=== PATIENT | female | born 2000 | race Caucasian/White ===

== ENCOUNTER 2022-09-21 18:22 | Emergency (ER) | payer OTHER, SELFPAY ==
[2022-09-21 18:30] VITALS: BP 121/67; PULSE 100; RESP 16; TEMP 36.2; O2SAT 99
[2022-09-21 18:41] VITALS: BP 121/67; PULSE 100; RESP 16; TEMP 36.2; O2SAT 99
--- NOTE | 2022-09-21 19:12 | ED.FEMALEGU ---
HPI - Female Genitourinary General Chief complaint: Urogenital-Female Stated complaint: Blood in Urine Source: patient and RN notes reviewed History of Present Illness HPI Narrative: 22-year-old female presents to urgent care with complaints left flank pain and blood in her urine for proximally 3 days. Patient reports slight nausea. Patient reports left lower back pain. Patient reports a history of kidney stones and believes this is whats going on. Denies any fevers, chills, vomiting, diarrhea, constipation, chest pain, or shortness of breath. Denies any dysuria. Related Data Home Medications Medication Instructions Recorded Confirmed albuterol 90 mcg/actuation aerosol 90 mcg inhalation Q4H PRN Dyspnea 09/21/22 09/21/22 inhaler budesonide-formoterol HFA 160 1 puff inhalation ONCE 09/21/22 09/21/22 mcg-4.5 mcg/actuation aerosol inhaler (Symbicort) dextroamphetamine-amphetamine 20 20 mg PO DAILY 09/21/22 09/21/22 mg tablet (Adderall) metformin 500 mg tablet 500 mg PO DAILY 09/21/22 09/21/22 Allergies Allergy/AdvReac Type Severity Reaction Status Date / Time No Known Allergies Allergy Verified 09/21/22 18:39 Review of Systems Review of Systems: Pertinent positives and pertinent negatives per HPI. PMFSH Comments At the time of my signature, I reviewed and agree with the nursing past medical, surgical, social, and family history. There is no relevant family history pertinent to the patient complaint. Exam Narrative: GENERAL: This is a well-nourished, well-developed patient, in no apparent distress. HEAD: normocephalic, atraumatic. EYES: Sclera clear/white. Vision is grossly intact. EARS: External ears normal, auditory canals clear and without drainage. Hearing grossly intact. NOSE: External nose normal with no obvious nasal discharge, nares without redness, no rhinorrhea. THROAT: Mucous membranes moist, posterior pharynx clear. NECK: Neck supple, non-tender without lymphadenopathy, masses or thyromegaly. CARDIOVASCULAR: Regular rate RESPIRATORY: No respiratory stress GASTROINTESTINAL: Abdomen soft, non-tender, nondistended. Bowel sounds are active. No hepato-splenomegaly, or palpable masses. No guarding. SKIN: warm, intact with no suspicious lesions or rash, good texture and turgor. NEURO: awake, alert, and oriented to person, place and time. There were no obvious focal neurologic abnormalities. BACK: Nontender without deformity or crepitus. No flank tenderness. Course Course Level of Care: Express Care Visit Vital Signs Vital signs: Vital Signs Temperature 97.2 F L 09/21/22 18:30 Pulse Rate 100 09/21/22 18:30 Respiratory Rate 16 09/21/22 18:30 Blood Pressure 121/67 09/21/22 18:30 Pulse Oximetry 99 09/21/22 18:30 Oxygen Delivery Room Air 09/21/22 18:30 Temperature 97.2 F L 09/21/22 18:41 Pulse Rate 100 09/21/22 18:41 Respiratory Rate 16 09/21/22 18:41 Blood Pressure 121/67 09/21/22 18:41 Pulse Oximetry 99 09/21/22 18:41 Oxygen Delivery Room Air 09/21/22 18:41 Reviewed MDM - Female Genitourinary MDM Narrative Medical decision making narrative: Take the Toradol as prescribed for pain. Do not take any other ibuprofen, Motrin, Advil, or Aleve with it. May take Tylenol 650 mg every 6 hours with the Toradol if needed. May take the Zofran as needed for nausea. Go to the ER with any new or worsening symptoms. Differential Diagnosis Differential diagnosis: Likely urinary tract infection and other (Hematuria, nephrolithiasis) Lab Data Attestation: I reviewed the patient's lab results. Labs: Urine Glucose Negative Reference Range: Negative Urine Bilirubin Negative Reference Range: Negative Urine Ketone Negative Reference Range: Negative Urine Specif
--- NOTE | 2022-09-21 20:03 | PC.NURSE ---
NO UC ORDERED PER PROVIDER
== END 2022-09-21 19:17 | disposition home or self-care (01) ==
PROVIDERS: Emergency Provider Nurse Practitioner Family
DX: R31.9 Hematuria, unspecified (principal); J45.909 Unspecified asthma, uncomplicated; R73.03 Prediabetes; E28.2 Polycystic ovarian syndrome; F90.9 Attention-deficit hyperactivity disorder, unspecified type
CPT/HCPCS: 81003; 99213; G0463

== ENCOUNTER 2023-02-23 17:00 | Emergency (ER) | payer OTHER, SELFPAY ==
[2023-02-23 17:06] VITALS: BP 120/69; PULSE 100; RESP 20; TEMP 37; O2SAT 100
--- NOTE | 2023-02-23 17:43 | ED.URI ---
HPI - URI/Sore Throat General Chief Complaint: Upper Respiratory Infection Stated Complaint: cough,shortness of breath Time Seen by Provider: 02/23/23 17:32 Source: patient, RN notes reviewed and old records reviewed Mode of arrival: ambulatory Limitations: no limitations History of Present Illness HPI Narrative: 23 year old presents to express care with complaints of cough and some shortness of breath, patient reports that her and her mother seem to be passing the bronchitis back and forth to each other. Patient has been on 2 rounds of antibiotics since the last part of December with last Rx received on 02/12/2023 of Amoxicillin which patient reports that she has taken. Patient reports that she had Rx of steroids also that she didn't pick up attendant because her insurance wouldn't cover them. Patient reports that she has history of asthma and has been using her Albuterol and also her Symbicort inhaler. Patient is afebrile and patient has nonlabored respirations with no tachypnea noted, SAO2 100% on room air.Patient is 10 weeks and has appointment with Dr Davenport on Saturday. Patient has history of asthma, SAO2 100% on room air, no tachypnea noted, occasional cough noted states needs refill of albuterol inhaler, elicited complaint: cough and other (reports some shortness of breath) Pertinent past history: asthma Onset (ago): day(s) (increased symptoms for 2 days) Pain scale (0-10): 0 Able to tolerate fluids by mouth: Yes Treatments prior to arrival: other (using prescribed inhalers) Related Data Home Medications Medication Instructions Recorded Confirmed albuterol 90 mcg/actuation aerosol 90 mcg inhalation Q4H PRN Dyspnea 09/21/22 09/21/22 inhaler budesonide-formoterol HFA 160 1 puff inhalation ONCE 09/21/22 09/21/22 mcg-4.5 mcg/actuation aerosol inhaler (Symbicort) fremanezumab-vfrm 225 mg/1.5 mL mg subcut 02/23/23 subcutaneous syringe (Ajovy Syringe) Allergies Allergy/AdvReac Type Severity Reaction Status Date / Time No Known Allergies Allergy Verified 09/21/22 18:39 Review of Systems Review of Systems: CONSTITUTIONAL: Denies malaise, chills, sweats, or fever. EYES: Denies visual changes, redness, or discharge. ENT: Reports rhinorrhea, congestion, sinus pain, otalgia and sore throat. CARDIOVASCULAR: Denies chest pain, palpitations, or edema. RESPIRATORY: Reports cough.? reports some dyspnea at times. GASTROINTESTINAL: Denies abdominal pain, nausea, vomiting, diarrhea SKIN: Denies rash or itching. MUSCULOSKELETAL: Denies myalgia. NEUROLOGIC: Denies headache. All systems reviewed & are unremarkable except as noted in HPI and below PMFSH Comments At time of signature, agree with nursing past medical, surgical, social and family history. There is no relevant family history pertinent to the presenting complaint Exam Narrative: GENERAL: Well-appearing, well-nourished, and in no acute distress. HEAD: Normocephalic EYES: PERRLA, conjunctivae clear ENT: Nares clear, turbinates edematous and erythematous, clear discharge. Mucous membranes moist. TM pearly mcdonald with dull light reflex bilaterally; no tragal tenderness. Oropharynx erythematous without lesions. Tonsils not enlarged and without exudate, no drooling, no hoarseness, no trismus, uvula midline. NECK: Supple. No lymphadenopathy CHEST: Clear to auscultation, breath sounds equal. No wheezing, rhonchi, rales, or stridor. No respiratory distress, speaks in full sentences.Cough noted SAO2 100% on room air HEART: Regular rate and rhythm. No murmur heard. SKIN: Warm, dry, no rash. NEURO: Alert and oriented x3. PSYCH: Normal mood and affect Course Course Emergency Course: Patient is aware of diagnosis, understands and agrees to treatment plan.? Anticipatory guidance given.? Patient agrees to follow-up as directed and is aware of reasons to seek care at the emergency department. Portions of this record may have been cre
== END 2023-02-23 18:11 | disposition home or self-care (01) ==
PROVIDERS: Emergency Provider Registered Nurse
DX: J06.9 Acute upper respiratory infection, unspecified (principal)
CPT/HCPCS: 99213; G0463